=== PATIENT | male | born 1960 | race Two or more races ===

== ENCOUNTER 2018-09-16 18:15 | Emergency (ER) | payer OTHER ==
--- NOTE | 2018-09-16 20:11 | ED Physician Documentation ---
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 bled initially and he cleaned it and wrapped it. Machinist Mate had him come to get evaluated.) Where injury occurred: Work ([employer].) Timing - onset: How many minutes ago (30), Today Timing - details: Abrupt onset Worsened by: Moving, Palpating Associated symptoms: No: Weakness, Numbness, Swelling Contributing factors: No: Anticoagulated Similar symptoms before: Has not had sx before Recently seen: Not recently seen Review of Systems Neurologic: denies: Focal weakness, Numbness PD PAST MEDICAL HISTORY - Past Medical History Cardiovascular: None Respiratory: None - Present Medications Home Medications: Ambulatory Orders Medication Instructions Recorded Confirmed Testosterone Cypionate 100 mg IM 09/16/18 [Depo-Testosterone] - Allergies Allergies/Adverse Reactions: Allergies Allergy/AdvReac Type Severity Reaction Status Date / Time No Known Drug Allergies Allergy Verified 09/16/18 18:31 PD ED PE NORMAL - Vitals Vital signs reviewed: Yes - General General: Alert and oriented X 3, No acute distress, Well developed/nourished - Derm Derm: Normal color, Warm and dry - Extremities Extremities: Other (Right thumb tip with laceration that runs just parallel to the underside of the nailbed. The wound is closed at this time and there is no foreign body. It does not have any blood under the nail itself. There is good motion at the IP joint. There is normal sensation at the tip. It does not need any sutures and there is no bleeding at this time.) - Neuro Neuro: No motor deficit, No sensory deficit Results - Vitals Vitals: Vital Signs - 24 hr 09/16/18 09/16/18 18:28 20:36 Temperature 37.6 C H Heart Rate 80 85 Respiratory 18 18 Rate Blood Pressure 137/85 H 135/85 H O2 Saturation 94 98 Oxygen O2 Source Room air PD MEDICAL DECISION MAKING - ED course Complexity details: considered differential, d/w patient Departure - Departure Disposition: 01 Home, Self Care Clinical Impression: Laceration of right thumb Qualifiers: Encounter type: initial encounter Damage to nail status: with damage Foreign body presence: without foreign body Qualified Code(s): S61.111A - Laceration without foreign body of right thumb with damage to nail, initial encounter Condition: Stable Record reviewed to determine appropriate education?: Yes Instructions: ED Laceration Hand Comments: Clean the wound couple times a day with soap and water and apply ointment. Band-Aid as needed. Tylenol or ibuprofen if needed for pains. This should heal up okay without any problems. Recheck if signs of infection. Forms: Activity restrictions Discharge Date/Time: 09/16/18 20:45
[2018-09-16] MEDS ORDERED: IBUPROFEN 600 MG TABLET PO STA (20:24)
[2018-09-16] MEDS ORDERED: ACETAMINOPHEN 325 MG TABLET PO STA (20:25)
[2018-09-16 20:37] VITALS: BP 135/85
== END 2018-09-16 20:45 | disposition home or self-care (01) ==
LOC: ED 18:15
DX: S61.011A Laceration without foreign body of right thumb without damage to nail, initial encounter (principal); W31.89XA Contact with other specified machinery, initial encounter; Y93.G1 Activity, food preparation and clean up; Y92.511 Restaurant or cafe as the place of occurrence of the external cause; Y99.0 Civilian activity done for income or pay
CPT/HCPCS: 1040M; 99282; 99283; A9270